=== PATIENT | male | born 1950 | race Caucasian/White ===

== ENCOUNTER 2019-06-14 11:44 | Emergency (ER) | payer OTHER ==
[2019-06-14] MEDS ORDERED: Sodium Chloride 0.9% 10 ML Syringe FLUSH PRN (11:53)
[2019-06-14] MEDS ORDERED: cefTRIAXone 2 GM Vial IVPUSH ONE (12:22)
[2019-06-14] MEDS ORDERED: methylPREDNISolone Sodium Succinate 125 MG/2 ML SDV IVPUSH ONE (12:23)
[2019-06-14] MEDS ORDERED: Morphine 4 MG/ML Syringe IVPUSH ONE (12:24)
[2019-06-14 12:31] VITALS: BP 151/85; PULSE 87
--- NOTE | 2019-06-14 12:41 | CR ---
[id number] RAD/RAD Chest PA or AP 1V EXAM: RAD Chest PA or AP 1V INDICATION: RIGHT SIDED POSTERIOR, CHEST PAIN, COUGH. COMPARISON: March 26, 2018. DISCUSSION: Cardiomediastinal silhouette is unchanged in appearance compared to the prior examination. No infiltrate, effusion, pneumothorax, or edema. IMPRESSION: No acute findings in the chest or significant change from the prior examination. Enmanuel Herron MD 06/14/19 [id number] Thank you for allowing us to participate in the care of your patient.
[2019-06-14 12:43] LABS: CHLORIDE,CL 101 mmol/L (98-107); SODIUM,NA 139 mmol/L (136-145)
[2019-06-14 12:44] LABS: ANION GAP 15.1 mmol/L (10-20)
[2019-06-14] MEDS ORDERED: Iopamidol 612 MG/ML 100 ML Bottle IVPUSH ONE (13:23)
--- NOTE | 2019-06-14 14:17 | EDM.PDOC ---
ED HPI GENERAL MEDICAL PROBLEM - General Chief Complaint: General Time Seen by Provider: 06/14/19 11:44 Source of Information: Reports: Patient, EMS History Limitations: Reports: No Limitations - History of Present Illness INITIAL COMMENTS - FREE TEXT/NARRATIVE: Pt. presents to ER via EMS. She complaints of R posterior chest pain, below the shoulder blade. He states that it is worse with deep breathing. Denies any fever or chills. Pt. states that he has had increased cough recently. He states that he has a history of severe COPD. Pt. states that the discomfort in the R posterior back was quite acute in onset. Denies any specific trauma. No hemoptysis. Pt. has a history of CAD and has undergone CABG x 3. He has a history of atrial fibrillation. Denies any palpitations. No substernal chest,jaw, or arm pain. Pt. received IV fentanyl from EMS while enroute to ER. He states that this helped somewhat. Onset: Today Onset Date: 06/14/19 Location: Reports: Chest, Back Quality: Reports: Sharp, Stabbing Worsens with: Reports: Breathing, Movement Right Lower Posterior Shoulder Pain Score (Numeric/FACES): 8 - Related Data Allergies Allergy/AdvReac Type Severity Reaction Status Date / Time No Known Allergies Allergy Verified 06/14/19 12:33 Home Meds: Home Meds Omeprazole 20 mg PO ACBREAKFAST cap.cr 09/03/15 [Rx] atorvaSTATin Calcium [Atorvastatin Calcium] 80 mg PO DAILY 09/03/15 [History] Albuterol/Ipratropium [DuoNeb 3.0-0.5 MG/3 ML] 3 ml NEB Q6H PRN 09/17/15 [ History] Clopidogrel Bisulfate [Clopidogrel] 75 mg PO BEDTIME 09/17/15 [History] Aspirin [Adult Low Dose Aspirin EC] 81 mg PO DAILY 03/26/18 [History] Metoprolol Succinate [Toprol XL 50mg] 50 mg PO DAILY 03/26/18 [History] Cyclobenzaprine HCl 10 mg PO TID PRN 06/14/19 [History] Gabapentin [Neurontin] 600 mg PO BID 06/14/19 [History] Nitroglycerin [Nitrostat] 0.4 mg SL ASDIRECTED PRN 06/14/19 [History] Past Medical History - Past Health History Medical/Surgical History: Denies Medical/Surgical History Cardiovascular History: Reports: [place] Respiratory History: Reports: COPD Gastrointestinal History: Reports: None Genitourinary History: Reports: None Musculoskeletal History: Reports: Back Pain, Chronic Neurological History: Reports: None Psychiatric History: Reports: Anxiety Dermatologic History: Reports: None - Past Surgical History Cardiovascular Surgical History: Reports: Coronary Artery Bypass, Coronary Artery Stent Respiratory Surgical History: Reports: None GI Surgical History: Reports: None Male Surgical History: Reports: None Musculoskeletal Surgical History: Reports: Other (See Below) Dermatological Surgical History: Reports: None Social & Family History - Family History Family Medical History: Noncontributory ED ROS GENERAL - Review of Systems Review Of Systems: See Below Constitutional: Reports: No Symptoms HEENT: Reports: No Symptoms Respiratory: Reports: Shortness of Breath, Pleuritic Chest Pain, Cough Cardiovascular: Reports: No Symptoms. Denies: Lightheadedness, Orthopnea, Palpitations Endocrine: Reports: No Symptoms GI/Abdominal: Reports: No Symptoms : Reports: No Symptoms Musculoskeletal: Reports: Back Pain Skin: Reports: No Symptoms, Other Neurological: Reports: No Symptoms Psychiatric: Reports: No Symptoms Hematologic/Lymphatic: Reports: No Symptoms Immunologic: Reports: No Symptoms ED EXAM, GENERAL - Physical Exam Exam: See Below Exam Limited By: No Limitations General Appearance: Alert, WD/WN, No Apparent Distress Eye Exam: Bilateral Eye: EOMI, Normal Fundi, Normal Inspection, PERRL Nose: Normal Inspection, No Blood Throat/Mouth: Normal Inspection, Normal Lips, Normal Teeth, Normal Gums, Normal Oropharynx, Normal Voice, No Airway Compromise Head: Atraumatic, Normocephalic Neck: Normal Inspection, Supple, Non-Tender, Full Range of Motion Respiratory/Chest: No Respiratory Distress, Decreased Breath Sounds, Other ( tender to palp R posterior chest wall below scapula) Cardiovascular: Normal Peripheral Pulses, No Edema, No Gallop, No JVD, No Murmur , No Rub, Irregularly Irregular Peripheral Pulses: 4+: Radial (L) GI/Abdominal: Soft, Non-Tender, No Distention, No Mass (Male) Exam: Deferred Rectal (Males) Exam: Deferred Back Exam: Other (see above) Extremities: Normal Inspection, Normal Range of Motion, Non-Tender, No Pedal Edema, Normal Capillary Refill Neurological: Alert, Oriented, CN II-XII Intact, Normal Cognition, Normal Gait, Normal Reflexes, No Motor/Sensory Deficits Course - Vital Signs Last Recorded V/S: Last Vital Signs Temp 36.1 C 06/14/19 11:44 Pulse 87 06/14/19 11:44 Resp 20 06/14/19 11:44 BP 151/85 H 06/14/19 11:44 Pulse Ox 99 06/14/19 11:44 - Orders/Labs/Meds Orders: Active Orders 24 hr Category Date Time Status EKG Documentation Completion [RC] STAT Care 06/14/19 11:53 Active Sodium Chloride 0.9% [Saline Flush] Med 06/14/19 11:53 Active 10 ml FLUSH ASDIRECTED PRN Peripheral IV Insertion Adult [OM.PC] Routine Oth 06/14/19 11:54 Ordered Medication Orders Sodium Chloride (Saline Flush) 10 ml FLUSH ASDIRECTED PRN PRN Reason: Keep Vein Open Labs: Laboratory Tests 06/14/19 06/14/19 06/14/19 Range/Units 12:06 12:06 12:06 WBC 9.9 (4.0-10.0) x10^3/uL RBC 4.64 (4.5-6.0) x10^6/uL Hgb 14.4 (14.0-18.0) g/dL Hct 43.3 (40.0-52.0) % MCV 93.3 H (78.0-93.0) fL MCH 31.0 (26.0-32.0) pg MCHC 33.3 (32.0-36.0) g/dL RDW Coeff of Davide 13.6 (10.0-15.0) % Plt Count 239 (130-400) x10^3/uL Neut % (Auto) 67.4 (50.0-80.0) % Lymph % (Auto) 24.4 L (25.0-50.0) % [place] % (Auto) 5.7 (2.0-11.0) % Eos % (Auto) 2.3 (0.0-4.0) % Baso % (Auto) 0.2 (0.2-1.2) % PT 10.7 (10.0-12.8) SEC INR 0.9 L (2.0-3.5) D-Dimer, Quantitative 4.01 H (<=0.58) mg/LFEU Sodium 139 (136-145) mmol/L Potassium 4.1 (3.5-5.1) mmol/L Chloride 101 (98-107) mmol/L Carbon Dioxide 27 (21-32) mmol/L Anion Gap 15.1 (10-20) mmol/L BUN 20 H (7-18) mg/dL Creatinine 1.3 (0.70-1.30) mg/dL Est Cr Clr Drug Dosing TNP Estimated GFR (MDRD) 55 Glucose 109 H (74-106) mg/dL Lactic Acid (0.4-2.0) mmol/L Calcium 9.3 (8.5-10.1) mg/dL Corrected Calcium 9.54 (8.5-10.1) mg/dL Magnesium 1.9 (1.8-2.4) mg/dL Total Bilirubin 0.4 (0.2-1.0) mg/dL AST 24 (15-37) U/L ALT 24 (16-63) U/L Alkaline Phosphatase 166 H (46-116) U/L Troponin I < 0.017 (<=0.056) ng/mL C-Reactive Protein 1.6 H (<=0.9) mg/dL NT-Pro-B Natriuret Pep 177 H (<=125) pg/mL Total Protein 8.0 (6.4-8.2) g/dL Albumin 3.7 (3.4-5.0) g/dL Globulin 4.3 Albumin/Globulin Ratio 0.86 TSH, Ultra Sensitive 3.928 H (0.358-3.74) uIU/mL 06/14/19 Range/Units 12:06 WBC (4.0-10.0) x10^3/uL RBC (4.5-6.0) x10^6/uL Hgb (14.0-18.0) g/dL Hct (40.0-52.0) % MCV (78.0-93.0) fL MCH (26.0-32.0) pg MCHC (32.0-36.0) g/dL RDW Coeff of Davide (10.0-15.0) % Plt Count (130-400) x10^3/uL Neut % (Auto) (50.0-80.0) % Lymph % (Auto) (25.0-50.0) % [place] % (Auto) (2.0-11.0) % Eos % (Auto) (0.0-4.0) % Baso % (Auto) (0.2-1.2) % PT (10.0-12.8) SEC INR (2.0-3.5) D-Dimer, Quantitative (<=0.58) mg/LFEU Sodium (136-145) mmol/L Potassium (3.5-5.1) mmol/L Chloride (98-107) mmol/L Carbon Dioxide (21-32) mmol/L Anion Gap (10-20) mmol/L BUN (7-18) mg/dL Creatinine (0.70-1.30) mg/dL Est Cr Clr Drug Dosing Estimated GFR (MDRD) Glucose (74-106) mg/dL Lactic Acid 2.4 H* (0.4-2.0) mmol/L Calcium (8.5-10.1) mg/dL Corrected Calcium (8.5-10.1) mg/dL Magnesium (1.8-2.4) mg/dL Total Bilirubin (0.2-1.0) mg/dL AST (15-37) U/L ALT (16-63) U/L Alkaline Phosphatase (46-116) U/L Troponin I (<=0.056) ng/mL C-Reactive Protein (<=0.9) mg/dL NT-Pro-B Natriuret Pep (<=125) pg/mL Total Protein (6.4-8.2) g/dL Albumin (3.4-5.0) g/dL Globulin Albumin/Globulin Ratio TSH, Ultra Sensitive (0.358-3.74) uIU/mL Meds: Medications Generic Name Dose Route Start Last Admin Trade Name Freq PRN Reason Stop Dose Admin Sodium Chloride 10 ml 06/14/19 11:53 Saline Flush FLUSH ASDIRECTED PRN Keep Vein Open Discontinued Medications Generic Name Dose Route Start Last Admin Trade Name Freq PRN Reason Stop Dose Admin Ceftriaxone Sodium 2 gm 06/14/19 12:22 06/14/19 12:48 Rocephin IVPUSH 06/14/19 12:23 2 gm STAT ONE Administration Iopamidol 100 ml 06/14/19 13:23 06/14/19 13:29 Isovue-300 (61%) IVPUSH 06/14/19 13:24 100 ml ONETIME ONE Administration Methylprednisolone Sodium Succinate 125 mg 06/14/19 12:23 06/14/19 12:44 Solu-Medrol IVPUSH 06/14/19 12:24 125 mg ONETIME ONE Administration Morphine Sulfate 4 mg 06/14/19 12:24 06/14/19 12:46 Morphine IVPUSH 06/14/19 12:25 4 mg ONETIME ONE Administration Departure - Departure Time of Disposition: 14:56 Disposition: DC/Tfer to [facility] 02 Clinical Impression: COPD exacerbation, Metastatic malignant neoplasm to lung - Discharge Information Referrals: Belen Colby PA-C [Primary Care Provider] - Forms: ED Department Discharge Sepsis Event Note - Evaluation Sepsis Screening Result: No Definite Risk - Focused Exam Vital Signs: Vital Signs Temp Pulse Resp BP Pulse Ox 06/14/19 11:44 36.1 C 87 20 151/85 H 99 Date Exam was Performed: 06/14/19 Time Exam was Performed: 14:56 - Problem List Review Problem List Initiated/Reviewed/Updated: Yes - My Orders Last 24 Hours: My Active Orders 06/14/19 11:53 EKG Documentation Completion [RC] STAT Sodium Chloride 0.9% [Saline Flush] 10 ml FLUSH ASDIRECTED PRN 06/14/19 11:54 Peripheral IV Insertion Adult [OM.PC] Routine - Assessment/Plan Last 24 Hours: My Active Orders 06/14/19 11:53 EKG Documentation Completion [RC] STAT Sodium Chloride 0.9% [Saline Flush] 10 ml FLUSH ASDIRECTED PRN 06/14/19 11:54 Peripheral IV Insertion Adult [OM.PC] Routine Plan: Pt. was found to have a large L upper lobe lung mass with what appears to be metastasis to spine. There apears to be extension from T8 vertebral body into posterior elements/possibly into central canal. No PE noted. No obvious infiltrate noted. Pt. was given 2 gm of rocephin IV and solu medrol 125mg IV for COPD exacerbation. Neuro exam is within normal limits. Denies numbness, tingling or lack of motor function distal to area of T8. Pain was well controlled with IV fentanyl and dilaudid. Pt. discussed findings with his . She is aware he is being transferred.
--- NOTE | 2019-06-14 14:18 | CT ---
[id number] CT/CTA Chest EXAM: CTA Chest CLINICAL DATA: POSTERIOR CHEST PAIN, POSITIVE D DIMER. COMPARISON: Today and March 2018. FINDINGS: LUNGS: 29 x 18 x 43 mm mass in the anterior aspect of the left upper lobe. Anterior margin of the mass appears to cross both the visceral and parietal pleural surfaces into the muscular chest wall as seen on series 4 image 31. HEART AND GREAT VESSELS: Negative for pulmonary embolus. Thoracic aorta atherosclerosis. No aneurysm or dissection. Heart is normal in size. No pericardial effusion. MEDIASTINUM AND LYMPHATICS: No mediastinal or hilar lymphadenopathy. UPPER ABDOMINAL ORGANS: Heterogeneous density with enhancement in the liver, appearing to involve the left hepatic lobe and more centrally near the caudate lobe along the inferior margin of the nina hepatis. BONES: Lytic lesion in the T8 vertebral body right of midline extending into the right posterior elements. There is extension beyond the cortex of the bone is well resulting in at least some degree of central canal and right foraminal stenosis. No other osseous lesions identified. IMPRESSION: 43 x 29 x 18 mm left upper lobe mass extending into the chest wall, described above. Findings are consistent with neoplasm. Metastatic lesion in the T8 vertebral body right of midline extending into the posterior elements as well as beyond the cortex of the bone resulting in some degree of central canal and foraminal stenosis. Abnormal appearance of the liver. Nodular appearing arterial enhancement can be seen with hepatic hemangioma. However findings are incompletely evaluated on this single phase contrast examination, especially with a left upper lobe neoplasm and metastatic lesion in the spine. Liver protocol MRI examination of the abdomen with either postcontrast is recommended for further evaluation. If there is contraindication MRI or if MRI is not available, a liver protocol CT would also be of benefit. Enmanuel Herron MD 06/14/19 [id number] Thank you for allowing us to participate in the care of your patient.
[2019-06-14] MEDS ORDERED: HYDROmorphone 1 MG/ML Syringe IVPUSH ONE (15:05)
== END 2019-06-14 15:25 | disposition short-term general hospital (02) ==
LOC: VM.ED 11:44
DX: J44.1 Chronic obstructive pulmonary disease with (acute) exacerbation (principal); C78.02 Secondary malignant neoplasm of left lung; C80.1 Malignant (primary) neoplasm, unspecified; I25.10 Atherosclerotic heart disease of native coronary artery without angina pectoris; I25.2 Old myocardial infarction; Z95.1 Presence of aortocoronary bypass graft; Z79.82 Long term (current) use of aspirin; Z79.899 Other long term (current) drug therapy; Z95.5 Presence of coronary angioplasty implant and graft
CPT/HCPCS: 36415; 71045; 71275; 80053; 83605; 83735; 83880; 84443; 84484; 85025; 85379; 85610; 86140; 93005; 96374; 96375; 99284; 99285; J0696; J1170; J2270; J2930; Q9967

== ENCOUNTER 2019-08-03 06:58 | Emergency (ER) | payer MEDICARE, OTHER ==
[2019-08-03] MEDS ORDERED: Sodium Chloride 0.9% 10 ML Syringe FLUSH PRN (07:10)
[2019-08-03] MEDS ORDERED: Ondansetron 4 MG/2 ML SDV IVPUSH ONE (07:12)
[2019-08-03] MEDS ORDERED: HYDROmorphone 1 MG/ML Syringe IVPUSH ONE ×3 (07:12→11:35)
[2019-08-03] MEDS ORDERED: Sodium Chloride 0.9% 1,000 ML IV ONE (07:12)
[2019-08-03 07:52] LABS: CHLORIDE,CL 103 mmol/L (98-107); SODIUM,NA 142 mmol/L (136-145)
[2019-08-03 07:53] LABS: ANION GAP 17.7 mmol/L (10-20)
--- NOTE | 2019-08-03 08:06 | EDM.PDOC ---
ED HPI GENERAL MEDICAL PROBLEM - General Chief Complaint: Gastrointestinal Problem Stated Complaint: ER Time Seen by Provider: 08/03/19 06:58 Source of Information: Reports: Patient History Limitations: Reports: No Limitations - History of Present Illness INITIAL COMMENTS - FREE TEXT/NARRATIVE: Pt. presents to ER with complaints of abdominal pain. Pt. has been experiencing this for several days. He is scheduled to have a CT abdomen and pelvis today with IV and oral contrast (per his oncologist). Pain was getting worse today and his is unable to drive so EMS was summoned. Denies any known fever or chills. No chest pain or shortness of breath. He does complain of some discomfort to the L axillary area that is worse with movement. Denies any bloody stools. He complains of feeling nauseated and has vomited 4 times today. Pt. currently undergoing treatment for metastatic lung adenocarcinoma with infiltration of the brain, spine, liver, and adrenal glands. Last chemo was 1 week ago. In reviewing his chart, it appears that he has been experiencing abdominal discomfort for some time but states that it is worse in the past several days. He states that his last BM was probably . Onset Date: 08/02/19 Location: Reports: Abdomen Quality: Reports: Ache Severity: Severe Associated Symptoms: Reports: Loss of Appetite. Denies: Diaphoresis, Fever/ Chills, Nausea/Vomiting, Weakness - Related Data Allergies Allergy/AdvReac Type Severity Reaction Status Date / Time No Known Allergies Allergy Verified 08/03/19 07:05 Home Meds: Home Meds Omeprazole 20 mg PO ACBREAKFAST cap.cr 09/03/15 [Rx] atorvaSTATin Calcium [Atorvastatin Calcium] 80 mg PO DAILY 09/03/15 [History] Albuterol/Ipratropium [DuoNeb 3.0-0.5 MG/3 ML] 3 ml NEB TID 09/17/15 [History] Clopidogrel Bisulfate [Clopidogrel] 75 mg PO BEDTIME 09/17/15 [History] Aspirin [Adult Low Dose Aspirin EC] 81 mg PO DAILY 03/26/18 [History] Metoprolol Succinate [Toprol XL 50mg] 50 mg PO DAILY 03/26/18 [History] Cyclobenzaprine HCl 10 mg PO TID PRN 06/14/19 [History] Gabapentin [Neurontin] 300 mg PO TID 06/14/19 [History] Nitroglycerin [Nitrostat] 0.4 mg SL ASDIRECTED PRN 06/14/19 [History] Calcium Carbonate/Vitamin D3 [Caltrate 600 + D Soft Chew Tab] 1 each PO BID [History] Docusate Sodium/Sennosides [Senokot-S] 1 each PO BID 08/03/19 [History] Folic Acid 1 mg PO DAILY 08/03/19 [History] Hydrocodone/Acetaminophen [[place] 10-325 Tablet] 1 each PO Q6H PRN 08/03/19 [ History] OLANZapine [Olanzapine] 10 mg PO ASDIRECTED 08/03/19 [History] Ondansetron [Zofran] 8 mg PO Q8H PRN 08/03/19 [History] Prochlorperazine [Compazine] 10 mg PO QID PRN 08/03/19 [History] levETIRAcetam [Keppra] 500 mg PO BID 08/03/19 [History] polyethylene glycoL 3350 [MiraLAX] 17 gm PO DAILY 08/03/19 [History] Past Medical History - Past Health History Medical/Surgical History: Denies Medical/Surgical History Cardiovascular History: Reports: [place] Respiratory History: Reports: COPD Gastrointestinal History: Reports: None Genitourinary History: Reports: None Musculoskeletal History: Reports: Back Pain, Chronic Neurological History: Reports: None Psychiatric History: Reports: Anxiety Dermatologic History: Reports: None - Past Surgical History Cardiovascular Surgical History: Reports: Coronary Artery Bypass, Coronary Artery Stent Respiratory Surgical History: Reports: None GI Surgical History: Reports: None Male Surgical History: Reports: None Musculoskeletal Surgical History: Reports: Other (See Below) Dermatological Surgical History: Reports: None Social & Family History - Family History Family Medical History: Noncontributory ED ROS GENERAL - Review of Systems Review Of Systems: See Below Constitutional: Reports: No Symptoms HEENT: Reports: No Symptoms Respiratory: Reports: No Symptoms Cardiovascular: Reports: No Symptoms Endocrine: Reports: No Symptoms GI/Abdominal: Reports: Abdominal Pain, Nausea, Vomiting : Reports: No Symptoms Musculoskeletal: Reports: Other (L axillary area) Skin: Reports: No Symptoms Neurological: Reports: No Symptoms Psychiatric: Reports: No Symptoms Hematologic/Lymphatic: Reports: No Symptoms Immunologic: Reports: No Symptoms ED EXAM, GENERAL - Physical Exam Exam: See Below Exam Limited By: No Limitations General Appearance: Alert, WD/WN, No Apparent Distress Head: Atraumatic, Normocephalic Neck: Normal Inspection, Supple, Non-Tender, Full Range of Motion Respiratory/Chest: No Respiratory Distress, Lungs Clear, Normal Breath Sounds, No Accessory Muscle Use, Chest Non-Tender Cardiovascular: Normal Peripheral Pulses, Regular Rate, Rhythm, No Edema, No Gallop, No JVD, No Murmur, No Rub Peripheral Pulses: 4+: Radial (R) GI/Abdominal: Distended, Tender, Other (diminished BS, diffusely tender throughout, worse in mid upper abdomen.) (Male) Exam: Deferred Rectal (Males) Exam: Deferred Extremities: Normal Inspection, Normal Range of Motion, Non-Tender, No Pedal Edema, Normal Capillary Refill Neurological: Alert, Oriented, CN II-XII Intact, Normal Cognition, Normal Gait, Normal Reflexes, No Motor/Sensory Deficits Psychiatric: Normal Affect, Normal Mood Skin Exam: Warm, Dry, Intact, Normal Color, No Rash Course - Vital Signs Last Recorded V/S: Last Vital Signs Temp 36.7 C 08/03/19 10:52 Pulse 102 H 08/03/19 10:52 Resp 12 08/03/19 10:52 BP 122/78 08/03/19 10:52 Pulse Ox 96 08/03/19 10:52 - Orders/Labs/Meds Orders: Active Orders 24 hr Category Date Time Status Sodium Chloride 0.9% [Saline Flush] Med 08/03/19 07:10 Active 10 ml FLUSH ASDIRECTED PRN Peripheral IV Insertion Adult [OM.PC] Routine Oth 08/03/19 07:11 Ordered Medication Orders Sodium Chloride (Saline Flush) 10 ml FLUSH ASDIRECTED PRN PRN Reason: Keep Vein Open Labs: Laboratory Tests 08/03/19 08/03/19 08/03/19 Range/Units 07:25 07:25 07:25 WBC 3.9 L (4.0-10.0) x10^3/uL RBC 3.78 L (4.5-6.0) x10^6/uL Hgb 12.0 L D (14.0-18.0) g/dL Hct 35.3 L (40.0-52.0) % MCV 93.4 H (78.0-93.0) fL MCH 31.7 (26.0-32.0) pg MCHC 34.0 (32.0-36.0) g/dL RDW Coeff of Davide 13.7 (10.0-15.0) % Plt Count 120 L D (130-400) x10^3/uL Neut % (Auto) 74.5 (50.0-80.0) % Lymph % (Auto) 15.3 L (25.0-50.0) % [place] % (Auto) 7.1 (2.0-11.0) % Eos % (Auto) 2.8 (0.0-4.0) % Baso % (Auto) 0.3 (0.2-1.2) % PT 10.3 (10.0-12.8) SEC INR 0.9 L (2.0-3.5) Sodium 142 (136-145) mmol/L Potassium 3.7 (3.5-5.1) mmol/L Chloride 103 (98-107) mmol/L Carbon Dioxide 25 (21-32) mmol/L Anion Gap 17.7 (10-20) mmol/L BUN 22 H (7-18) mg/dL Creatinine 1.1 (0.70-1.30) mg/dL Est Cr Clr Drug Dosing TNP Estimated GFR (MDRD) > 60 Glucose 116 H (74-106) mg/dL Calcium 8.9 (8.5-10.1) mg/dL Corrected Calcium 9.46 (8.5-10.1) mg/dL Magnesium 1.8 (1.8-2.4) mg/dL Total Bilirubin 0.6 (0.2-1.0) mg/dL AST 46 H (15-37) U/L ALT 60 (16-63) U/L Alkaline Phosphatase 213 H (46-116) U/L C-Reactive Protein 5.1 H (<=0.9) mg/dL Total Protein 7.6 (6.4-8.2) g/dL Albumin 3.3 L (3.4-5.0) g/dL Globulin 4.3 Albumin/Globulin Ratio 0.77 Urine Color (YELLOW) Urine Appearance (CLEAR) Urine pH (5.0-8.0) Ur Specific [place] Urine Protein (NEGATIVE) mg/dL Urine Glucose (UA) (NEGATIVE) mg/dL Urine Ketones (NEGATIVE) mg/dL Urine Occult Blood (NEGATIVE) Urine Nitrite (NEGATIVE) Urine Bilirubin (NEGATIVE) Urine Urobilinogen (0.2) EU/dL Ur Leukocyte Esterase (NEGATIVE) Urine RBC (NOT SEEN) /HPF Urine WBC (NOT SEEN) /HPF Ur Squamous Epith Cells (NEGATIVE) /HPF Urine Bacteria (NEGATIVE) /HPF Urine Mucus (NEGATIVE) /LPF 08/03/19 Range/Units 11:00 WBC (4.0-10.0) x10^3/uL RBC (4.5-6.0) x10^6/uL Hgb (14.0-18.0) g/dL Hct (40.0-52.0) % MCV (78.0-93.0) fL MCH (26.0-32.0) pg MCHC (32.0-36.0) g/dL RDW Coeff of Davide (10.0-15.0) % Plt Count (130-400) x10^3/uL Neut % (Auto) (50.0-80.0) % Lymph % (Auto) (25.0-50.0) % [place] % (Auto) (2.0-11.0) % Eos % (Auto) (0.0-4.0) % Baso % (Auto) (0.2-1.2) % PT (10.0-12.8) SEC INR (2.0-3.5) Sodium (136-145) mmol/L Potassium (3.5-5.1) mmol/L Chloride (98-107) mmol/L Carbon Dioxide (21-32) mmol/L Anion Gap (10-20) mmol/L BUN (7-18) mg/dL Creatinine (0.70-1.30) mg/dL Est Cr Clr Drug Dosing Estimated GFR (MDRD) Glucose (74-106) mg/dL Calcium (8.5-10.1) mg/dL Corrected Calcium (8.5-10.1) mg/dL Magnesium (1.8-2.4) mg/dL Total Bilirubin (0.2-1.0) mg/dL AST (15-37) U/L ALT (16-63) U/L Alkaline Phosphatase (46-116) U/L C-Reactive Protein (<=0.9) mg/dL Total Protein (6.4-8.2) g/dL Albumin (3.4-5.0) g/dL Globulin Albumin/Globulin Ratio Urine Color Yellow (YELLOW) Urine Appearance Clear (CLEAR) Urine pH 5.5 (5.0-8.0) Ur Specific [place] <=1.005 Urine Protein Negative (NEGATIVE) mg/dL Urine Glucose (UA) Negative (NEGATIVE) mg/dL Urine Ketones Negative (NEGATIVE) mg/dL Urine Occult Blood Small H (NEGATIVE) Urine Nitrite Negative (NEGATIVE) Urine Bilirubin Negative (NEGATIVE) Urine Urobilinogen 1.0 (0.2) EU/dL Ur Leukocyte Esterase Negative (NEGATIVE) Urine RBC 0-5 (NOT SEEN) /HPF Urine WBC 0-5 (NOT SEEN) /HPF Ur Squamous Epith Cells Occasional H (NEGATIVE) /HPF Urine Bacteria Rare (NEGATIVE) /HPF Urine Mucus Occasional H (NEGATIVE) /LPF Meds: Medications Generic Name Dose Route Start Last Admin Trade Name Freq PRN Reason Stop Dose Admin Sodium Chloride 10 ml 08/03/19 07:10 Saline Flush FLUSH ASDIRECTED PRN Keep Vein Open Discontinued Medications Generic Name Dose Route Start Last Admin Trade Name Freq PRN Reason Stop Dose Admin Hydromorphone HCl 1 mg 08/03/19 07:12 08/03/19 07:35 Dilaudid IVPUSH 08/03/19 07:13 1 mg ONETIME ONE Administration Hydromorphone HCl 1 mg 08/03/19 10:57 08/03/19 11:03 Dilaudid IVPUSH 08/03/19 10:58 1 mg ONETIME ONE Administration Sodium Chloride 1,000 mls @ 1,000 mls/hr 08/03/19 07:12 08/03/19 07:33 Normal Saline IV 08/03/19 08:11 1,000 mls/hr .BOLUS ONE Administration Iopamidol 100 ml 08/03/19 08:21 08/03/19 10:00 Isovue-300 (61%) IVPUSH 08/03/19 08:22 100 ml ONETIME ONE Administration Iopamidol 15 ml 08/03/19 08:30 08/03/19 08:50 Isovue-370 (76%) PO 08/03/19 09:01 15 ml Q30M TED Administration Ondansetron HCl 4 mg 08/03/19 07:12 08/03/19 07:33 Zofran IVPUSH 08/03/19 07:13 4 mg ONETIME ONE Administration - Radiology Interpretation Free Text/Narrative:: CT abd. and pelvis with IV and oral contrast were obtained. According to radiologist, there was no high grade obstruction. There is some apparent tethering of the sigmoid. No free air noted. There is new metastatic lesions of liver. Images were pushed to [facility] PACs. Departure - Departure Time of Disposition: 11:18 Disposition: DC/Tfer to [facility] 02 Clinical Impression: Cancer associated pain, Adenocarcinoma, metastatic - Discharge Information Referrals: Matias Isbell MD [Primary Care Provider] - Forms: ED Department Discharge Sepsis Event Note - Evaluation Sepsis Screening Result: No Definite Risk - Focused Exam Vital Signs: Vital Signs Temp Pulse Resp BP Pulse Ox 08/03/19 10:52 36.7 C 102 H 12 122/78 96 08/03/19 09:28 103 H 12 128/81 96 08/03/19 08:03 108 H 14 138/84 96 08/03/19 06:58 37.2 C 115 H 18 157/87 H 97 Date Exam was Performed: 08/03/19 Time Exam was Performed: 11:25 - Problem List Review Problem List Initiated/Reviewed/Updated: Yes - My Orders Last 24 Hours: My Active Orders 08/03/19 07:10 Sodium Chloride 0.9% [Saline Flush] 10 ml FLUSH ASDIRECTED PRN 08/03/19 07:11 Peripheral IV Insertion Adult [OM.PC] Routine - Assessment/Plan Last 24 Hours: My Active Orders 08/03/19 07:10 Sodium Chloride 0.9% [Saline Flush] 10 ml FLUSH ASDIRECTED PRN 08/03/19 07:11 Peripheral IV Insertion Adult [OM.PC] Routine Plan: Pt. will be transferred to [facility] oncology dept. Dr. Hsu is accepting. Pt. will be transported via [facility] ground ambulance. He can have dilaudid 1 mg every 15 min as needed for pain control. He is a code 1 at this time.
[2019-08-03] MEDS: Iopamidol 755 MG/ML 50 ML Bottle PO SCH ×2 (08:20→08:50)
[2019-08-03] MEDS ORDERED: Iopamidol 612 MG/ML 100 ML Bottle IVPUSH ONE (08:21)
--- NOTE | 2019-08-03 10:48 | CT ---
[id number] CT/CT Abdomen Pelvis W IV EXAM: CT Abdomen Pelvis W IV CLINICAL DATA: ABDOMINAL PAIN METASTATIC CANCER COMPARISON: CORRELATION IS MADE WITH FEBRUARY 08, 2014 FINDINGS: Multiple hepatic lesions are seen There is a stable segment IV A hepatic hemangioma Bilateral adrenal masses are seen Bilateral small renal cysts are seen. The spleen is unremarkable. The pancreas is unremarkable There are diffuse atheromatous calcifications The pancreas and pelvis show no acute abnormalities There is some apparent tethering of loops of bowel in the sigmoid region IMPRESSION: DEVELOPMENT OF MULTIPLE LIVER LESIONS LIKELY METASTATIC STABLE SEGMENT IV LESION LIKELY A HEMANGIOMA DEVELOPMENT OF BILATERAL ADRENAL MASSES Lon Atkins MD 08/03/19 1047 Thank you for allowing us to participate in the care of your patient.
[2019-08-03 11:18] VITALS: BP 122/78; PULSE 102
== END 2019-08-03 12:00 | disposition short-term general hospital (02) ==
LOC: VM.ED 06:58
DX: C34.90 Malignant neoplasm of unspecified part of unspecified bronchus or lung (principal); C78.7 Secondary malignant neoplasm of liver and intrahepatic bile duct; C79.31 Secondary malignant neoplasm of brain; C79.72 Secondary malignant neoplasm of left adrenal gland; C79.71 Secondary malignant neoplasm of right adrenal gland; C79.51 Secondary malignant neoplasm of bone; R11.2 Nausea with vomiting, unspecified; J44.9 Chronic obstructive pulmonary disease, unspecified; I25.2 Old myocardial infarction; F41.9 Anxiety disorder, unspecified; Z79.82 Long term (current) use of aspirin; Z79.899 Other long term (current) drug therapy; Z95.5 Presence of coronary angioplasty implant and graft
CPT/HCPCS: 74177; 80053; 81001; 83735; 85025; 85610; 86140; 96361; 96374; 96375; 96376; 99284-GF; 99285-25; J1170; J2405; J7030; Q9967

== ENCOUNTER 2019-08-21 11:11 | Emergency (ER) | payer OTHER ==
[2019-08-21 11:23] VITALS: BP 144/90; PULSE 109
[2019-08-21 12:23] LABS: ANION GAP 17.3 mmol/L (10-20); CHLORIDE,CL 99 mmol/L (98-107); SODIUM,NA 138 mmol/L (136-145)
--- NOTE | 2019-08-21 12:40 | EDM.PDOC ---
ED HPI GENERAL MEDICAL PROBLEM - General Chief Complaint: Skin Complaint Time Seen by Provider: 08/21/19 11:18 Source of Information: Reports: Patient History Limitations: Reports: No Limitations - History of Present Illness INITIAL COMMENTS - FREE TEXT/NARRATIVE: Pt. presents to ER with complaints of redness to the skin overlying a recently inserted port. Pt. is currently undergoing chemotherapy. He wears a "tortise shell brace" and states that the port is under the edge of the brace. He states that he protects the port with a 4x4. He noticed yesterday that the skin was inflamed. Denies any fever or chills. No chest pain or shortness of breath. The port was last accessed on 08/15/2019. Onset Date: 08/20/19 Location: Reports: Chest - Related Data Allergies Allergy/AdvReac Type Severity Reaction Status Date / Time No Known Allergies Allergy Verified 08/21/19 11:25 Home Meds: Home Meds Omeprazole 20 mg PO ACBREAKFAST cap.cr 09/03/15 [Rx] atorvaSTATin Calcium [Atorvastatin Calcium] 80 mg PO DAILY 09/03/15 [History] Albuterol/Ipratropium [DuoNeb 3.0-0.5 MG/3 ML] 3 ml NEB TID 09/17/15 [History] Clopidogrel Bisulfate [Clopidogrel] 75 mg PO BEDTIME 09/17/15 [History] Aspirin [Adult Low Dose Aspirin EC] 81 mg PO DAILY 03/26/18 [History] Metoprolol Succinate [Toprol XL 50mg] 50 mg PO DAILY 03/26/18 [History] Cyclobenzaprine HCl 10 mg PO TID PRN 06/14/19 [History] Gabapentin [Neurontin] 300 mg PO TID 06/14/19 [History] Nitroglycerin [Nitrostat] 0.4 mg SL ASDIRECTED PRN 06/14/19 [History] Calcium Carbonate/Vitamin D3 [Caltrate 600 + D Soft Chew Tab] 1 each PO BID [History] Docusate Sodium/Sennosides [Senokot-S] 1 each PO BID 08/03/19 [History] Folic Acid 1 mg PO DAILY 08/03/19 [History] Hydrocodone/Acetaminophen [[place] 10-325 Tablet] 1 each PO Q6H PRN 08/03/19 [ History] OLANZapine [Olanzapine] 10 mg PO ASDIRECTED 08/03/19 [History] Ondansetron [Zofran] 8 mg PO Q8H PRN 08/03/19 [History] Prochlorperazine [Compazine] 10 mg PO QID PRN 08/03/19 [History] polyethylene glycoL 3350 [MiraLAX] 17 gm PO DAILY 08/03/19 [History] Past Medical History - Past Health History Medical/Surgical History: Denies Medical/Surgical History Cardiovascular History: Reports: Afib, Bypass, CAD, High Cholesterol, [place] Respiratory History: Reports: COPD Other Respiratory History: lung mass Gastrointestinal History: Reports: None Genitourinary History: Reports: None Musculoskeletal History: Reports: Back Pain, Chronic Other Musculoskeletal History: tendonitis left shoulder Neurological History: Reports: None Psychiatric History: Reports: Anxiety Oncologic (Cancer) History: Reports: Bone, Brain, Lung Dermatologic History: Reports: None - Past Surgical History Cardiovascular Surgical History: Reports: Coronary Artery Bypass, Coronary Artery Stent Neurological Surgical History: Reports: Other (See Below) Other Neurological Surgeries/Procedures: left frontal craniotomy Social & Family History - Family History Family Medical History: Noncontributory - Tobacco Use Smoking Status *Q: Current Every Day Smoker Years of Tobacco use: 50 Packs/Tins Daily: 0.5 ED ROS GENERAL - Review of Systems Review Of Systems: See Below Constitutional: Denies: Fever, Chills, Malaise HEENT: Reports: No Symptoms Respiratory: Reports: No Symptoms Cardiovascular: Reports: No Symptoms Endocrine: Reports: No Symptoms GI/Abdominal: Reports: No Symptoms : Reports: No Symptoms Musculoskeletal: Reports: No Symptoms Skin: Reports: Pruritis, Rash Neurological: Reports: No Symptoms Psychiatric: Reports: No Symptoms Hematologic/Lymphatic: Reports: No Symptoms Immunologic: Reports: No Symptoms ED EXAM, SKIN/RASH Exam: See Below Exam Limited By: No Limitations General Appearance: Alert, WD/WN, No Apparent Distress Neck: Normal Inspection, Supple Respiratory/Chest: No Respiratory Distress, Decreased Breath Sounds Cardiovascular: Normal Peripheral Pulses, Regular Rate, Rhythm, No Edema, No JVD Peripheral Pulses: 4+: Radial (L) GI/Abdominal: Soft, Non-Tender Course - Vital Signs Last Recorded V/S: Last Vital Signs Temp 36.4 C 08/21/19 11:18 Pulse 109 H 08/21/19 11:18 Resp 20 08/21/19 11:18 BP 144/90 H 08/21/19 11:18 Pulse Ox 100 08/21/19 11:18 - Orders/Labs/Meds Orders: Active Orders 24 hr Category Date Time Status CULTURE BLOOD [BC] Stat Lab 08/21/19 11:45 Received CULTURE BLOOD [BC] Stat Lab 08/21/19 11:54 Received Blood Culture x2 Reflex Set [OM.PC] Stat Oth 08/21/19 11:29 Ordered Labs: Laboratory Tests 08/21/19 08/21/19 08/21/19 Range/Units 11:45 11:45 11:45 WBC 3.5 L (4.0-10.0) x10^3/uL RBC 3.19 L (4.5-6.0) x10^6/uL Hgb 10.2 L D (14.0-18.0) g/dL Hct 31.0 L (40.0-52.0) % MCV 97.2 H D (78.0-93.0) fL MCH 32.0 (26.0-32.0) pg MCHC 32.9 (32.0-36.0) g/dL RDW Coeff of Davide 15.6 H (10.0-15.0) % Plt Count 227 D (130-400) x10^3/uL Neut % (Auto) 74.2 (50.0-80.0) % Lymph % (Auto) 22.0 L (25.0-50.0) % [place] % (Auto) 2.3 (2.0-11.0) % Eos % (Auto) 1.2 (0.0-4.0) % Baso % (Auto) 0.3 (0.2-1.2) % Sodium 138 (136-145) mmol/L Potassium 4.3 (3.5-5.1) mmol/L Chloride 99 (98-107) mmol/L Carbon Dioxide 26 (21-32) mmol/L Anion Gap 17.3 (10-20) mmol/L BUN 22 H (7-18) mg/dL Creatinine 1.0 (0.70-1.30) mg/dL Est Cr Clr Drug Dosing TNP Estimated GFR (MDRD) > 60 Glucose 114 H (74-106) mg/dL Lactic Acid 2.1 H* (0.4-2.0) mmol/L Calcium 9.4 (8.5-10.1) mg/dL Corrected Calcium 9.96 (8.5-10.1) mg/dL Total Bilirubin 0.5 (0.2-1.0) mg/dL AST 60 H (15-37) U/L ALT 68 H (16-63) U/L Alkaline Phosphatase 313 H (46-116) U/L Total Protein 7.8 (6.4-8.2) g/dL Albumin 3.3 L (3.4-5.0) g/dL Globulin 4.5 Albumin/Globulin Ratio 0.73 - Re-Assessments/Exams Free Text/Narrative Re-Assessment/Exam: Contacted oncologist consumer marketing specialist at [facility]. Advised starting the patient on Keflex for 10 days and following up in the clinic as the patient is otherwise asymptomatic/afebrile. Departure - Departure Time of Disposition: 13:00 Disposition: Home, Self-Care 01 Clinical Impression: Cellulitis - Discharge Information Instructions: Cellulitis, Adult, Cephalexin tablets or capsules, Probiotics Referrals: Matias Isbell MD [Primary Care Provider] - Forms: ED Department Discharge Additional Instructions: Keflex 500mg 1 tab 4 times daily for 10 days Keep pressure off of the area as much as possible, as this could be causing the redness. Recheck in clinic this week if not improving or if getting worse. Return to ER if fever, chills, weakness, or lightheadedness. Sepsis Event Note - Evaluation Sepsis Screening Result: No Definite Risk - Focused Exam Date Exam was Performed: 08/21/19 Time Exam was Performed: 23:34 - My Orders Last 24 Hours: My Active Orders 08/21/19 11:29 Blood Culture x2 Reflex Set [OM.PC] Stat 08/21/19 11:45 CULTURE BLOOD [BC] Stat 08/21/19 11:54 CULTURE BLOOD [BC] Stat - Assessment/Plan Last 24 Hours: My Active Orders 08/21/19 11:29 Blood Culture x2 Reflex Set [OM.PC] Stat 08/21/19 11:45 CULTURE BLOOD [BC] Stat 08/21/19 11:54 CULTURE BLOOD [BC] Stat Plan: Keflex 500mg 1 tab 4 times daily for 10 days Keep pressure off of the area as much as possible, as this could be causing the redness. Recheck in clinic this week if not improving or if getting worse. Return to ER if fever, chills, weakness, or lightheadedness.
== END 2019-08-21 13:05 | disposition home or self-care (01) ==
LOC: VM.ED 11:11
DX: L03.90 Cellulitis, unspecified (principal); I48.91 Unspecified atrial fibrillation; E78.00 Pure hypercholesterolemia, unspecified; I25.2 Old myocardial infarction; J44.9 Chronic obstructive pulmonary disease, unspecified; F41.9 Anxiety disorder, unspecified; I25.810 Atherosclerosis of coronary artery bypass graft(s) without angina pectoris; F17.210 Nicotine dependence, cigarettes, uncomplicated; Z79.82 Long term (current) use of aspirin; Z79.899 Other long term (current) drug therapy
CPT/HCPCS: 36415; 80053; 83605; 85025; 87040; 99283; 99283-GF